=== PATIENT | female | born 1985 | race Two or more races ===

== ENCOUNTER 2016-09-05 22:54 | Emergency (ER) | payer MEDICAID ==
[~2016-09-05] VITALS: Ht 152.4 cm; Wt 108.9 kg
[~2016-09-05 22:54] MED LIST: PREN-96 PO; PRENCAP15
[2016-09-05 23:00] VITALS: BP 124/79
[2016-09-05 23:50] LABS: Urine Bilirubin Negative (Negative); Urine Blood Negative /uL (Negative); Urine Color Yellow (Yellow); Urine Glucose Normal (Normal); Urine Ketone Negative (Negative); Urine Mucus FEW (None Seen); Urine Nitrite Negative (Negative); Urine RBC 1 /hpf (0 - 4); Urine Squamous Epithelial Cell MOD /hpf (<5); Urine Urobilinogen Normal (Negative); Urine pH 6.5 (5.0-8.0)
[2016-09-06 00:19] LABS: Basophils % (auto) 0.2 % (0.0-2.0); Eosinophils % (auto) 0.3 % (0.0-7.0); Lymphocytes % (auto) 17.1 % (10.0-50.0); Neutrophils % (auto) 77.4 % (37.0-80.0); White Blood Cell 8.9 10^3/uL (4.4-10.8)
[2016-09-06 00:20] LABS: Basophils # (auto) 0 uL; Eosinophils # (auto) 0 uL; Hematocrit 39.6 % (36.0-46.0); Hemoglobin 13.1 g/dL (12.2-16.2); Lymphocytes # (auto) 1.5 uL; Mean Corpuscular Hemoglobin 29.1 pg (28.0-32.0); Mean Corpuscular Volume 88.4 fL (80.0-100.0); Mean Platelet Volume 7.2 fL (7.4-10.4); Monocytes # (auto) 0.4 uL; Platelet Count (auto) 308 10^3/uL (140-450); Red Cell Distribution Width 13.8 % (11.6-16.0)
[2016-09-06 00:22] LABS: Albumin 2.8 g/dL (3.4-5.0); BUN/Creatinine Ratio 14.8; Calcium 9.1 mg/dL (8.5-10.1); Potassium 3.4 mmol/L (3.5-5.1)
[2016-09-06 00:25] LABS: Bilirubin, Total 0.3 mg/dL (0.2-1.0); Total Protein 7.2 g/dL (6.4-8.2)
[2016-09-06] MEDS ORDERED: prednisoLONE 15 MG/5 ML ORAL UD PO ONE (01:45)
== END 2016-09-06 02:17 | disposition home or self-care (01) ==
LOC: ER 22:54
DX: O20.0 Threatened abortion (principal); Z3A.18 18 weeks gestation of pregnancy
CPT/HCPCS: 36415; 76805; 80053; 81001; 84702; 85025

== ENCOUNTER 2017-01-27 14:04 | Observation (INO) | payer MEDICAID | END 2017-01-27 16:13 | disposition home or self-care (01) | DRG 566 | LOC: LDRP 14:04 | PROVIDERS: ADMIT Specialist; ATTEND Specialist | DX: O26.893 Other specified pregnancy related conditions, third trimester (principal); Z3A.39 39 weeks gestation of pregnancy | CPT/HCPCS: 59025; 76818; 81002; G0378 ==

== ENCOUNTER 2017-02-01 03:51 | Inpatient (IN) | payer MEDICAID ==
[2017-02-01] VITALS (12 sets, daily range): BP systolic 110–132; BP diastolic 58–80
[~2017-02-01] VITALS: Ht 152.4 cm; Wt 106.1 kg
[2017-02-01] MEDS: LACTATED RINGER'S 1,000 ML IV SCH ×3 (05:00→20:05)
[2017-02-01 05:07] LABS: Basophils # (auto) 0 uL; Basophils % (auto) 0.2 % (0.0-2.0); Eosinophils # (auto) 0 uL; Eosinophils % (auto) 0.1 % (0.0-7.0); Hematocrit 37.4 % (36.0-46.0); Hemoglobin 13.1 g/dL (12.2-16.2); Lymphocytes # (auto) 1.6 uL; Lymphocytes % (auto) 19.6 % (10.0-50.0); Mean Corpuscular Hemoglobin 31.3 pg (28.0-32.0); Mean Corpuscular Volume 89.4 fL (80.0-100.0); Mean Platelet Volume 7.5 fL (6.9-10.8); Monocytes # (auto) 0.6 uL; Monocytes % (auto) 7.7 % (0.0-12.0); Neutrophils # (auto) 5.9 uL; Neutrophils % (auto) 72.4 % (37.0-80.0); Nucleated Red Blood Cells % 0.6 %; Platelet Count (auto) 205 10^3/uL (140-450); Red Cell Distribution Width 15.5 % (11.8-14.3); White Blood Cell 8.2 10^3/uL (4.4-10.8)
[2017-02-01 05:19] LABS: Urine Bilirubin Negative (Negative); Urine Blood 2+ /uL (Negative); Urine Color Yellow (Yellow); Urine Glucose Normal (Normal); Urine Ketone Negative (Negative); Urine Mucus FEW (None Seen); Urine Nitrite Negative (Negative); Urine RBC 96 /hpf (0 - 4); Urine Squamous Epithelial Cell FEW /hpf (<5); Urine Urobilinogen Normal (Negative)
[2017-02-01 05:20] LABS: INR 0.91 (0.9-1.15); Partial Thromboplastin Time 27.1 sec (22.64-33.71); Prothrombin Time 9.9 sec (9.37-12.3)
[2017-02-01 05:28] LABS: Albumin 2.6 g/dL (3.4-5.0); BUN/Creatinine Ratio 20.8; Bilirubin, Total 0.3 mg/dL (0.2-1.0); Calcium 8.4 mg/dL (8.5-10.1); Potassium 3.4 mmol/L (3.5-5.1)
[2017-02-01] MEDS ORDERED: PHENYLEPHRINE HCL 10 MG/ML VL ONE (06:58)
[2017-02-01] MEDS ORDERED: MORPHINE SULF(PF) 0.5MG/ML 10ML VIAL ONE (06:58)
[2017-02-01] MEDS ORDERED: diphenhdrAMINE HCL 50 MG/1 ML VL ONE ×2 (06:58→11:00)
[2017-02-01] MEDS ORDERED: ONDANSETRON HCL 4 MG/2 ML VIAL ONE (06:58)
[2017-02-01] MEDS ORDERED: OXYTOCIN 10 UNIT/ML 10ML VIAL ONE (06:58)
[2017-02-01] MEDS ORDERED: ePHEDrine SULFATE 50 MG/ML AMP ONE (06:58)
[2017-02-01] MEDS ORDERED: ceFAZolin 1GM VL ONE (06:58)
[2017-02-01] MEDS ORDERED: SODIUM CHL 0.9% 250 ML ONE (06:59)
[2017-02-01] MEDS ORDERED: LACT. RINGERS/OXYTOCIN 20UNITS 1,000 ML IV SCH (08:07)
[2017-02-01] MEDS ORDERED: ONDANSETRON HCL 4 MG/2 ML VIAL IV PRN ×2 (08:15→08:45)
[2017-02-01] MEDS ORDERED: HYDROmorphone HCL 2 MG/ML VL IV PRN (08:15)
[2017-02-01] MEDS ORDERED: NALBUPHINE HCL 10 MG/1ml INJECTION SUBCUT ONE (08:45)
[2017-02-01] MEDS ORDERED: NALOXONE HCL 0.4 MG/ML VIAL IV PRN (08:45)
[2017-02-01] MEDS ORDERED: DEXAMETHASONE SOD PHOS 10MG/1ML VIAL INJ IV PRN (08:45)
[2017-02-01] MEDS ORDERED: diphenhdrAMINE HCL 50 MG/1 ML VL IV PRN (11:00)
[2017-02-01] MEDS: ceFAZolin 1GM/50ML 50 ML IV SCH ×2 (15:29→23:00)
[2017-02-01] MEDS: KETOROLAC TROMETH 30 MG/ML 1ML VIAL IV PRN ×2 (15:39→21:34)
[2017-02-01] MEDS: MORPHINE SULF INJ 2 MG/ML SYRINGE 1ML IV PRN ×2 (17:55→22:37)
[2017-02-01 19:29] LABS: Basophils # (auto) 0 uL; Basophils % (auto) 0.3 % (0.0-2.0); Eosinophils # (auto) 0 uL; Hematocrit 36.7 % (36.0-46.0); Hemoglobin 12.3 g/dL (12.2-16.2); Lymphocytes # (auto) 1.3 uL; Lymphocytes % (auto) 14.3 % (10.0-50.0); Mean Corpuscular Hemoglobin 30.2 pg (28.0-32.0); Mean Corpuscular Hgb Conc. 33.5 g/dL (32.0-36.0); Mean Corpuscular Volume 90.3 fL (80.0-100.0); Mean Platelet Volume 7.5 fL (6.9-10.8); Monocytes # (auto) 0.6 uL; Monocytes % (auto) 6.3 % (0.0-12.0); Neutrophils # (auto) 7.1 uL; Neutrophils % (auto) 79.1 % (37.0-80.0); Platelet Count (auto) 180 10^3/uL (140-450); Red Cell Distribution Width 15.5 % (11.8-14.3)
[2017-02-02] VITALS (12 sets, daily range): BP systolic 104–124; BP diastolic 60–88
[2017-02-02] MEDS: LACTATED RINGER'S 1,000 ML IV SCH ×2 (01:48→12:05)
[2017-02-02] MEDS: MORPHINE SULF INJ 2 MG/ML SYRINGE 1ML IV PRN (02:00)
[2017-02-02] MEDS: KETOROLAC TROMETH 30 MG/ML 1ML VIAL IV PRN (04:28)
[2017-02-02] MEDS: ceFAZolin 1GM/50ML 50 ML IV SCH (07:08)
[2017-02-02] MEDS ORDERED: HYDROcodone-ACET 5/325MG TAB PO PRN (07:15)
[2017-02-02 07:40] LABS: Basophils # (auto) 0 uL; Basophils % (auto) 0.1 % (0.0-2.0); Eosinophils # (auto) 0 uL; Eosinophils % (auto) 0.2 % (0.0-7.0); Hemoglobin 10.7 g/dL (12.2-16.2); Lymphocytes % (auto) 12.9 % (10.0-50.0); Mean Corpuscular Hemoglobin 31.3 pg (28.0-32.0); Mean Corpuscular Hgb Conc. 34.6 g/dL (32.0-36.0); Mean Corpuscular Volume 90.4 fL (80.0-100.0); Mean Platelet Volume 7.2 fL (6.9-10.8); Monocytes # (auto) 0.5 uL; Monocytes % (auto) 6.3 % (0.0-12.0); Neutrophils # (auto) 6.1 uL; Neutrophils % (auto) 80.5 % (37.0-80.0); Platelet Count (auto) 140 10^3/uL (140-450); Red Cell Distribution Width 15.5 % (11.8-14.3); White Blood Cell 7.6 10^3/uL (4.4-10.8)
[2017-02-02] MEDS: DOCUSATE SOD 100 MG CAP PO SCH ×2 (09:44→21:39)
[2017-02-02] MEDS: IBUPROFEN 800 MG TAB PO PRN ×2 (09:45→18:52)
[2017-02-02] MEDS: HYDROcodone-ACET 5/325MG TAB PO PRN ×2 (14:35→19:30)
[2017-02-03] MEDS ORDERED: TETANUS-DIPTH-ACEL PERTUSSIS 0.5ML SYRG IM ONE (01:00)
[2017-02-03 03:00] VITALS: BP 129/73
[2017-02-03] MEDS: IBUPROFEN 800 MG TAB PO PRN ×3 (03:00→21:32)
[2017-02-03] MEDS: HYDROcodone-ACET 5/325MG TAB PO PRN ×5 (05:00→23:30)
[2017-02-03 07:00] VITALS: BP 120/63
[2017-02-03] MEDS: DOCUSATE SOD 100 MG CAP PO SCH ×2 (10:00→21:32)
[2017-02-03 11:00] VITALS: BP 118/71
[2017-02-03 15:00] VITALS: BP 131/77
[2017-02-03 19:00] VITALS: BP 117/77
[2017-02-03 23:00] VITALS: BP 121/80
[2017-02-04 04:00] VITALS: BP 102/63
[2017-02-04] MEDS: HYDROcodone-ACET 5/325MG TAB PO PRN (05:05)
[2017-02-04] MEDS: IBUPROFEN 800 MG TAB PO PRN (05:56)
[2017-02-04 07:00] VITALS: BP 109/63
== END 2017-02-04 09:15 | disposition home or self-care (01) | DRG 540 ==
LOC: LDRP 03:51
PROVIDERS: ADMIT Obstetrics & Gynecology; ATTEND Obstetrics & Gynecology
PROC: 10D00Z1 Extraction of Products of Conception, Low, Open Approach (ICD-10-PCS; principal; 2017-02-01 07:21)
DX: O34.219 Maternal care for unspecified type scar from previous cesarean delivery (principal); Z68.42 Body mass index [BMI] 45.0-49.9, adult; Z23 Encounter for immunization; Z37.0 Single live birth; O99.214 Obesity complicating childbirth; E66.9 Obesity, unspecified; Z3A.39 39 weeks gestation of pregnancy
CPT/HCPCS: 36415; 51702; 59025; 80053; 80307; 81001; 85025; 85610; 85730; 86850; 86900; 86901; 90472; 90715; 94762; 96361; 96366; 96372; 96375; J0690; J1100; J1885; J2405; J2590

== ENCOUNTER 2022-04-09 14:14 | Emergency (ER) | payer MEDICAID ==
[~2022-04-09] VITALS: Ht 152.4 cm; Wt 116.0 kg
[~2022-04-09 14:14] MED LIST changes: -PREN-96 PO
[2022-04-09 15:23] VITALS: BP 159/85
[2022-04-09] MEDS ORDERED: cefTRIAXone SOD 1,000 MG VL IM ONE (16:15)
[2022-04-09] MEDS ORDERED: CEPH500C PO (16:52)
[2022-04-09] MEDS ORDERED: IBUP800T27 PO (16:52)
== END 2022-04-09 16:56 | disposition home or self-care (01) ==
LOC: ER 14:14
DX: K02.9 Dental caries, unspecified (principal); L04.0 Acute lymphadenitis of face, head and neck
CPT/HCPCS: 96372; 99283; J0696